=== PATIENT | male | born 1970 | race African-American/Black ===

== ENCOUNTER 2020-12-22 12:08 | Inpatient (IN) | payer MEDICAID, SELFPAY ==
[~2020-12-22] VITALS: Ht 167.6 cm; Wt 63.5 kg
[2020-12-22 12:20] VITALS: BP 222/110
[2020-12-22] MEDS ORDERED: MORPHINE SULFATE 4 MG/ML SYR IVP ONE (12:35)
[2020-12-22] MEDS ORDERED: ONDANSETRON 4 MG/2 ML VIAL IVP ONE (12:35)
[2020-12-22] MEDS ORDERED: LABETALOL 100 MG/20 ML VIAL IVP ONE (12:35)
--- NOTE | 2020-12-22 12:40 | NUR ---
RECEIVED 50 Y/O MALE WHO C/O SOB AND TACHY POST SMOKING MARIJUANA. C/O SOB THAT BEGAN YESTERDAY, (THEN ADDED IT WAS THIS MORNING) PATIENT STATES HE IS HAVING SUBSTERNAL CHEST PAIN ASSOCIATED WITH SOB. PT SMOKED MARIJUANA TODAY, AND IS NOW STATING "I FEEL LIKE I CANT BREATH", AAOX4. NO RESPIRATORY DISTRESS AT THIS TIME PMH:HTN ALLERGIES: ATIVAN
--- NOTE | 2020-12-22 13:20 | NUR ---
TO XRAY VIA G[facility]
--- NOTE | 2020-12-22 13:46 | NUR ---
1300 IV ACCESS OBTAINED, MEDICATED WITH LABETALOL 20MG IVP, MORPHINE 4MG IVP AND ZOFRAN 4MG IVP. LABS PER AUTO [employer]S COUNTER PERSON. VS MONITORED, PORTABLE CHEST XRAY COMPLETE.
[2020-12-22 13:52] LABS: BASOPHILS % (AUTO) 0.1 % (0.0-2.0); HEMOGLOBIN 12.7 g/dL (12.0-18.0); LYMPHOCYTES # (AUTO) 0.3 K/uL (2.0-11.5); LYMPHOCYTES % (AUTO) 4.7 % (20.5-51.1); MEAN CORPUSCULAR HEMOGLOBIN 28 pg (27-31); MEAN CORPUSCULAR HGB CONC 32 g/dL (33-37); MEAN CORPUSCULAR VOLUME 85.2 fL (80-94); MONOCYTES # (AUTO) 0.3 K/uL (0.8-1.0); MONOCYTES % (AUTO) 4.6 % (1.7-9.3); NEUTROPHILS # (AUTO) 5.8 K/uL (1.8-7.7); NEUTROPHILS % (AUTO) 90.6 % (42.2-75.2); PLATELET COUNT (AUTO) 116 K/uL (140-450); RED BLOOD CELL COUNT(AUTO) 4.58 MIL/uL (4.20-6.10); RED CELL DISTRIBUTION WIDTH 20.9 % (11.6-13.7); WHITE BLOOD COUNT (AUTO) 6.4 K/uL (4.8-10.8)
--- NOTE | 2020-12-22 13:58 | NUR ---
PATIENT HAS YET BEEN UNABLE TO PROVIDE URINE FOR C/S, WATER PROVIDED, ENCOURAGEMENT GIVEN. VS IMPROVING, HEADACHE RESOLVING TO 3/10 DENIES NAUSEA.
[2020-12-22] MEDS ORDERED: PIPERACILLIN/TAZOBACTAM 4.5 GM in DEXTROSE 5% 100 ML IV ONE (14:00)
[2020-12-22 14:10] LABS: PROTHROMBIN TIME 9.8 secs (10.8-13.4)
[2020-12-22 14:11] LABS: ALBUMIN 4.5 g/dL (3.4-5.0); ANION GAP 14.9 (8-16); CARBON DIOXIDE 25.1 mmol/L (21-32); CREATININE 1.7 mg/dL (0.6-1.3); TOTAL BILIRUBIN 0.9 mg/dL (0.0-1.0)
--- NOTE | 2020-12-22 14:30 | NUR ---
RESTING QUIETLY, STATES PAIN HAS BEEN RELIEVED, FEELS MUCH BETTER, FAMILY MEMBER AT BEDSIDE. MONITORING CONTINUES, NSR WITH OCC PVC NOTED, RATE NOW 89. RESP EVEN AND UNLABORED, SKIN IS WARM AND DRY.
[2020-12-22] MEDS ORDERED: PIPERACILLIN/TAZOBACTAM 4.5 GM VIAL IV ONE (14:35)
[2020-12-22 15:37] LABS: APPEARANCE,URINE CLEAR (CLEAR); BILIRUBIN,URINE 1+ (NEGATIVE); BLOOD, URINE 2+ (NEGATIVE); LEUKOCYTE ESTERASE ,URINE NEGATIVE (NEGATIVE); NITRITE, URINE NEGATIVE (NEGATIVE); UGLUCOSE NEGATIVE (NEGATIVE)
[2020-12-22 15:38] LABS: COLOR,URINE AMBER (YELLOW)
[2020-12-22 15:55] LABS: RBC,URINE 0-5 /HPF (0-5)
[2020-12-22 16:02] LABS: CREATINE KINASE MB 1.5 ng/mL (0-3.6)
[2020-12-22] MEDS ORDERED: ONDANSETRON 4 MG/2 ML VIAL IVP PRN (16:05)
[2020-12-22] MEDS ORDERED: ACETAMINOPHEN 325 MG TAB PO PRN (16:05)
[2020-12-22] MEDS ORDERED: HYDROcodone/APAP 5/325 MG 1 TAB TAB PO PRN (16:05)
[2020-12-22] MEDS ORDERED: DOCUSATE SODIUM 100 MG GELCAP PO PRN (16:05)
[2020-12-22] MEDS ORDERED: LORazepam 2 MG/ML VIAL IM/IVP PRN (16:05)
[2020-12-22] MEDS: NACL 0.9% 1,000 ML IV SCH (16:21)
--- NOTE | 2020-12-22 16:31 | NUR ---
RECEIVED REPORT FROM ER NURSE SEAN PT IS AAOX4 ON ROOM AIR SATURATING AT 100%, AMBULATORY, SKIN INTACT IV INTACT ON RIGHT AC NS AT 100 ML/HR, HISTORY OF HYPERTENSION. WITH DIAGNOSIS OF ZAKIA, DEHYDRATION AND DIVERTICULITIS AND SOB DUE TO USE OF MARIJUANA.
--- NOTE | 2020-12-22 16:36 | NUR ---
REPORT CALLED TO RAHEEL RUSSELL, READY FOR TRANSPORT TO [facility]
[2020-12-22 17:00] VITALS: BP 148/101
--- NOTE | 2020-12-22 17:00 | NUR ---
PATIENT BROUGHT TO THE UNIT VIA GURNEY PT ASSISTED TO BED AND ABLE TO AMBULATE, CHANGED PT CLOTHES AND HOOK TO TELEMONITOR, CHECK VITAL SIGNS BP 148/101 MS 68 RR 18 TEMP 98.3 OXYGEN SATURATION AT 98%, ORIENTED TO ROOM SAFETY MEASURES IN PLACE AND CALL LIGHT WITHIN REACH. WILL CONTINUE TO MONITOR.
--- NOTE | 2020-12-22 17:02 | NUR ---
MRSA NARES DONE AND SENT TO LAB.
[2020-12-22 17:05] LABS: CHOL/HDL RATIO 3.3 (1-4.5); FREE T4 (FREE THYROXINE) 1.13 ng/dL (0.76-1.46); PHOSPHORUS 1.5 mg/dL (2.5-4.9); THYROID STIMULATING HORMONE 1.08 uIU/mL (0.34-3.74)
[2020-12-22 18:21] LABS: BARBITURATE, URINE NEGATIVE ng/ml (NEG <=200); BENZODIAZEPINE, URINE NEGATIVE ng/mL (NEG <=200); CANNABINOID, URINE POSITIVE ng/mL (NEG <=50); COCAINE, URINE NEGATIVE ng/mL (NEG <=300); OPIATE, URINE POSITIVE ng/mL (NEG <=2000); PHENCYCLIDINE SCREEN,URINE NEGATIVE ng/mL (NEG <=25)
--- NOTE | 2020-12-22 19:23 | NUR ---
ENDORSED TO NIGHT NURSE FOR CONTINUITY OF CARE. PT IS STABLE.
[2020-12-22 20:00] VITALS: BP 127/75
--- NOTE | 2020-12-22 20:00 | NUR ---
PATIENT WAS RECEIVED IN HIS BED ALERT AND COHERENT ABLE TO SPEAK HIS NEEDS.
[2020-12-22] MEDS: metroNIDAZOLE 500 MG/NS PREMIX 100 ML IV SCH (20:13)
[2020-12-22] MEDS ORDERED: ZOLPIDEM 5 MG TAB PO PRN (21:00)
--- NOTE | 2020-12-22 21:00 | NUR ---
IV FLAGYL 500 MG WAS ADMINISTERED PATIENT WAS AWAKE, DENIES DISCOMFORT NOR SIGNS OF DISTRESS. V/SW WAS WNL
--- NOTE | 2020-12-22 23:00 | NUR ---
PATIENT WAS REQUESTING FOOD TO EAT, RN MADE DR. LAWSON AWARE OF THE PATIENT HAVING NO SPECIFIC DIET ORDER. WAITING FOR REPLY.
[2020-12-23] VITALS: BP 119/79
--- NOTE | 2020-12-23 | NUR ---
PATIENT ASKED FOR APPLE JUICE, WAS PROVIDED, TOLERATED WELL THE DRINK WITH NO SIGNS OF SWALLOWING DISABILITY.
--- NOTE | 2020-12-23 02:00 | NUR ---
PATIENT STILL ASKING FOR A SANDWICH TO EAT BUT DR. LAWSON HAS NOT REPLIED YET, EXPLAINED TO THE PATIENT THAT HE IS UNDER OBSERVATION DUE TO RECENTLY DIAGNOSED TO HAVE DIVERTICULITIS. Addendum: 12/23/20 at 0558 by Zion Rose RN RN DX: APPENDIX OPEN AND GALL BLADDER SLUDGE, Addendum: 12/23/20 at 0559 by Zion Rose RN RN OR APPENDIX DILATED 7 CM Addendum: 12/23/20 at 0601 by Zion Rose RN RN APPENDIX DILATED 7 MM RATHER THAN 7 CMM DILATED
[2020-12-23] MEDS: NACL 0.9% 1,000 ML IV SCH ×2 (02:08→13:23)
[2020-12-23 04:00] VITALS: BP 128/69
[2020-12-23] MEDS: metroNIDAZOLE 500 MG/NS PREMIX 100 ML IV SCH ×3 (04:37→21:45)
[2020-12-23 07:20] LABS: BASOPHILS % (AUTO) 0.1 % (0.0-2.0); EOSINOPHILS % (AUTO) 0.4 % (0.0-4.0); HEMATOCRIT 33.6 % (36-52); HEMOGLOBIN 10.8 g/dL (12.0-18.0); MEAN CORPUSCULAR HEMOGLOBIN 28 pg (27-31); MEAN CORPUSCULAR HGB CONC 32 g/dL (33-37); MEAN CORPUSCULAR VOLUME 85.9 fL (80-94); MONOCYTES # (AUTO) 0.3 K/uL (0.8-1.0); MONOCYTES % (AUTO) 6.8 % (1.7-9.3); NEUTROPHILS # (AUTO) 3.6 K/uL (1.8-7.7); NEUTROPHILS % (AUTO) 72.7 % (42.2-75.2); PLATELET COUNT (AUTO) 92 K/uL (140-450); RED CELL DISTRIBUTION WIDTH 21.1 % (11.6-13.7); WHITE BLOOD COUNT (AUTO) 4.9 K/uL (4.8-10.8)
[2020-12-23 07:25] LABS: MAGNESIUM 1.8 mg/dL (1.8-2.4); PHOSPHORUS 3.7 mg/dL (2.5-4.9)
[2020-12-23 07:26] LABS: CARBON DIOXIDE 26.4 mmol/L (21-32); CREATININE 1.4 mg/dL (0.6-1.3); POTASSIUM 3.4 mmol/L (3.5-5.1)
--- NOTE | 2020-12-23 07:33 | NUR ---
all reports were given, transfer of care endorsed.
--- NOTE | 2020-12-23 07:48 | NUR ---
RECEIVED REPORT FROM YVONNE TAPIA. PATIENT ALERT AWAKE ORIENTED, NOT IN ANY DISTRESS NOTED. DENIES PAIN AT THIS TIME. WITH IVF ON GOING AND INFUSING WELL. ON MONITOR SHOWS SR. CALL LIGHT WITHIN REACH, WILL CONTINUE TO MONITOR.
[2020-12-23 08:00] VITALS: BP 151/90
--- NOTE | 2020-12-23 08:05 | NUR ---
PATIENT HAS BEEN SCREENED AND CATEGORIZED LOW NUTRITION RISK. PATIENT WILL BE SEEN WITHIN 7 DAYS OF ADMISSION. 12/29/[address]
[2020-12-23] MEDS: MORPHINE SULFATE 2 MG/ML SYR IVP PRN (09:03)
--- NOTE | 2020-12-23 11:24 | NUR ---
PATIENT SEEN BY DR. CINTRON PERFORMANCE IMPROVEMENT MANAGER AND DR. JONES, DISCUSSED PLAN OF CARE. ADVANCE THE DIET FOR FULL LIQUID.
--- NOTE | 2020-12-23 14:42 | NUR ---
PATIENT ASKING FOR BEEF BROTH. NO C/O PAIN. WILL CONTINUE TO MONITOR.
[2020-12-23] MEDS ORDERED: POTASSIUM CHLORIDE 10 MEQ TABER PO SCH (15:00)
[2020-12-23 16:00] VITALS: BP 148/86
--- NOTE | 2020-12-23 16:59 | NUR ---
DC PLANNING: PATIENT CAME FROM [facility], [place] BY BUS TO RELOCATE TO [place]. PRESENTED WITH ABDOMINAL PAIN AND ZAKIA. PATIENT IS LIVING WITH HIS BROTHER IN A SECOND FLOOR APARTMENT, AD[address]ESS [address], [address], [place], # [phone]. PATIENT ADMITS TO MARIJUANA USE AND DRINKING 1/2 PINT ETOH EVERY OTHER DAY. PATIENT UNDERSTANDS THAT HE NEEDS TO FOLLOW UP WITH HIS M/LISANDRO APPLICATION. RESOURCES FOR M/LISANDRO MD'S AND GOOD RX CARD FOR PRESCRIPTIONS GIVEN TO PATIENT, ASKED THE ATTENDING MD TO ORDER ANTI-HYPERTENSIVES WHEN PATIENT DC'S. CM WILL FOLLOW FOR NEEDS.
[2020-12-23] MEDS: amLODIPine 5 MG TAB PO SCH (18:20)
--- NOTE | 2020-12-23 18:24 | NUR ---
PATIENT TOLERATING FULL LIQUID DIET, DENIES ABDOMINAL PAIN. SEEN BY DR. NAPOLES T BEDSIDE. WILL CONTINUE TO MONITOR.
--- NOTE | 2020-12-23 19:10 | NUR ---
RECEIVED REPORT FROM AM RN AT BEDSIDE. PT IN BED WATCHING TV, CALM / QUIET, VOICES NO C/O PAIN OR DISCOMFORT, RESP REG NON-LABORED, NO S/S OF DISTRESS NOTED.
[2020-12-23 20:15] VITALS: BP 141/82
--- NOTE | 2020-12-23 23:30 | NUR ---
MED PASS DONE. PT W/ NO CHANGE IN STATUS. NAD NOTED.
[2020-12-24] MEDS: NACL 0.9% 1,000 ML IV SCH ×2 (01:42→08:05)
--- NOTE | 2020-12-24 03:00 | NUR ---
ON ROUNDS PT AWAKE MOST OF THE NIGHT, WATCHING TV. NO S/S OF DISTRESS NOTED.
[2020-12-24] MEDS: metroNIDAZOLE 500 MG/NS PREMIX 100 ML IV SCH (05:41)
--- NOTE | 2020-12-24 07:20 | NUR ---
REPORT TO AM RN AT BEDSIDE. PT ASLEEP MOST OF THIS MORNING, AT PRESENT OOB TO BRP. RESP REG NON-LABORED. PT IN NAD.
--- NOTE | 2020-12-24 07:22 | NUR ---
RECEIVED REPORT FROM SOLE LEATHER CUTTING MACHINE OPERATOR RN. PATIENT IS NOT SHOWING ANY S/S OF DISTRESS. CALL LIGHT WITHIN REACH. SAFETY MEASURES IN PLACE.
[2020-12-24 08:00] VITALS: BP 177/90
[2020-12-24] MEDS: amLODIPine 5 MG TAB PO SCH (09:24)
[2020-12-24] MEDS: MORPHINE SULFATE 2 MG/ML SYR IVP PRN (09:32)
--- NOTE | 2020-12-24 09:35 | NUR ---
ADMINISTERED SCHEDULED MEDICATIONS. PATIENT VERBALIZED UNDERSTANDING. CALL LIGHT WITHIN REACH. SAFETY MEASURES IN PLACE.
--- NOTE | 2020-12-24 10:55 | NUR ---
ATTENDING DR AT BEDSIDE WITH PATIENT. DR DISCUSSED POC WITH PATIENT. PATIENT VERBALIZED UNDERSTANDING.
[2020-12-24] MEDS ORDERED: CIPR500T4 PO (11:31)
[2020-12-24] MEDS ORDERED: METR500T1 PO (11:31)
[2020-12-24] MEDS ORDERED: AMLO-3 PO (11:31)
[2020-12-24 12:06] VITALS: BP 177/90
--- NOTE | 2020-12-24 12:55 | NUR ---
ENDORSED DISCHARGE TO PATIENT. PATIENT VERBALIZED UNDERSTANDING. REMOVED IV CATH. CATH IS INTACT. PATIENT IS STABLE.
== END 2020-12-24 13:00 | disposition home or self-care (01) | DRG 244 ==
LOC: MED 12:08 → MTU 16:05
PROVIDERS: ADMIT Family Medicine; ATTEND Family Medicine
DX: K57.32 Diverticulitis of large intestine without perforation or abscess without bleeding (principal); N17.0 Acute kidney failure with tubular necrosis; K85.90 Acute pancreatitis without necrosis or infection, unspecified; D69.6 Thrombocytopenia, unspecified; E86.0 Dehydration; I10 Essential (primary) hypertension; Z20.822 Contact with and (suspected) exposure to COVID-19; Z17.0 Estrogen receptor positive status [ER+]; E78.1 Pure hyperglyceridemia; F10.10 Alcohol abuse, uncomplicated; F11.90 Opioid use, unspecified, uncomplicated; K40.90 Unilateral inguinal hernia, without obstruction or gangrene, not specified as recurrent; E87.6 Hypokalemia; Y90.9 Presence of alcohol in blood, level not specified; F12.10 Cannabis abuse, uncomplicated; D63.8 Anemia in other chronic diseases classified elsewhere; Z71.41 Alcohol abuse counseling and surveillance of alcoholic; Z71.51 Drug abuse counseling and surveillance of drug abuser
CPT/HCPCS: 36415; 71045; 76705; 80048; 80053; 80305; 81001; 82150; 82550; 82553; 83036; 83605; 83690; 83735; 83880; 84100; 84439; 84443; 84484; 85025; 85610; 85730; 86886; 86900; 86901; 87040; 87081; 87086; 93005; 96365; 96375; 99285; J0696; J2270; J2405; J2543; J3490; J7060